=== PATIENT | male | born 1985 | race Caucasian/White ===

== ENCOUNTER 2024-12-29 12:37 | Emergency (ER) | payer OTHER, SELFPAY ==
[2024-12-29 12:41] VITALS: BP 141/81
[2024-12-29 13:12] VITALS: BP 113/66
[2024-12-29 14:00] VITALS: BP 110/65; BMI 27.8
[2024-12-29 14:15] LABS: Hematocrit 40.8 % (39.0-52.0); Hemoglobin 13.4 g/dL (13.0-18.0); Mean Corp Hgb Conc. 32.8 g/dL (33.0-37.0); Mean Corpuscular Volume 85.9 fL (80.0-94.0); Nucleated Red Blood Cells % 0 % (-); Platelet Count 299 10^3/uL (130-400); Red Cell Dist. Width 12.1 % (11.5-14.5)
[2024-12-29 14:34] LABS: ALT (SGPT) 35 U/L (0-50); AST (SGOT) 32 U/L (17-59); Albumin 4.8 g/dl (3.5-5.0); Alkaline Phosphatase 68 U/L (38-126); Blood Urea Nitrogen 24 mg/dl (9-20); Calcium 9.2 mg/dl (8.4-10.2); Carbon Dioxide 28 mmol/L (22-30); Chloride 106 mmol/L (98-107); Estimated Creatinine Clearance 100 ml/min; Glucose 98 mg/dl (70-99); Potassium 4.3 mmol/L (3.5-5.1); Sodium 139 mmol/L (135-145); Total Protein 7.1 g/dl (6.3-8.2); eGFR > 60.00
[2024-12-29 14:45] LABS: Troponin I < 0.012 ng/ml
[2024-12-29 15:00] VITALS: BP 115/69
--- NOTE | 2024-12-29 15:03 | ED.GENMED ---
History of Present Illness
General
Chief Complaint: Chest Pain
Source: patient
Time Seen by Provider: 12/29/24 14:40
History of Present Illness
History of Present Illness:
39-year-old presents to the emergency room complaining of chest pain. Patient has been having intermittent chest pain of left chest for approximately 2 weeks. The discomfort does not occur with exertion. In fact the exercise today without any
issues. Discomfort typically seems to occur when he is at rest. He denies shortness of breath, diaphoresis, nausea. He does not typically have indigestion or heartburn. Discomfort does not seem to be associated with eating or any particular
activity. When the episode occurs it last for about a couple to 15 minutes. Again its never associated with exertion. He denies any significant medical history.
Phy Exam
Physical Exam
Physical Exam:
General: Awake, Alert, Oriented X3. No acute distress.
Vitals: unremarkable
Head: Atraumatic
Eyes: Pupils equal, EOMI
Throat: Airway intact, no exudates
Neck: Trachea midline
Lungs: Clear and equal b/l
Heart: Regular rate, no murmurs
Abd: Soft, Nontender, No pulsatile mass
Neuro: Nonfocal
Skin: Warm, dry, no rash
Extremities: pulses equal b/l, no edema
Scores
Heart Score for Chest Pain Patients
STEMI patient?: No
History: Slightly or Non-Suspicious
ECG: Normal
Age: </= 45 years
Risk Factors: No Risk Factors
Troponin: </= Normal Limit
Heart Score for Chest Pain Patients: 0
Heart Score Risk: 2.5% MACE over next 6 weeks
Course
Orders/Labs/Results
Orders:
Orders
12/29/24
Electrocardiogram (*1) Stat
Other Reason for Exam: CP
Comment: DONE
12/29/24 14:01
Complete Blood Count/With Diff Urgent
Comprehensive Metabolic Panel Urgent
Troponin I Urgent
12/29/24 15:12
CR Chest - 2 Views Urgent
Comment:
Reason For Exam: chest pain
Abnormal Lab Results
12/29/24
14:01
MCHC 32.8 L g/dL
(33.0-37.0)
Absolute Monos (auto) 0.9 H 10^3/uL
(0.1-0.6)
Monocytes % 13.7 H %
(1.7-9.3)
BUN 24 H mg/dl
(9-20)
12/29/24 14:01
12/29/24 14:01
Vital Signs
Initial and Last Documented VS:
Initial Vital Signs
Temp Pulse Resp BP Pulse Ox
98.4 F 66 18 141/81 99
12/29/24 12:41 12/29/24 12:41 12/29/24 12:41 12/29/24 12:41 12/29/24 12:41
Last Documented Vital Signs
Temp Pulse Resp BP Pulse Ox
98.4 F 63 14 107/63 99
12/29/24 14:00 12/29/24 16:00 12/29/24 15:31 12/29/24 16:00 12/29/24 15:04
MDM/Problems Addressed
Differential Diagnosis Includes:
Angina, chest wall pain, pneumothorax, anemia
MDM/Problems Addressed:
Patient presents with intermittent chest pain which does not appear to be consistent with any sort of a exertion or activity. EKG shows no acute ischemic changes. Labs are unremarkable. Overall no suggestion of an unstable process or acute
coronary syndrome. Patient stable for discharge home and follow-up with as an outpatient
*Radiology
Radiology exam reviewed: radiology read reviewed
*Pulse Oximetry
SaO2: 99
Oxygen Mode of Delivery: Room air
Patient hypoxic: no
*EKG
Interpreted by ED Provider?: Yes
Heart Rate: 56
Rate: bradycardiac
Rhythm: sinus
[place]: normal axis
Interval: normal interval
QRS Pattern: normal QRS
Ischemia: no ischemia
*Operations Section Manager Interpretation
Rate: normal
Interpretation: normal
Rhythm: sinus
*Critical Care Note
Total Time (30-74mins, 75-104mins- exclusive of procedures): Not Applicable
Update Note
Update Note:
Discharge instructions were printed and prior to my ability to speak to him I was called into a room to prepare for cardiac arrest patient. After finishing with that situation I went to bed 13 to speak with the patient but he had left.
ED Attending Note
-
Portions of this chart may have been created with voice recognition software.� Occasional wrong word or��sound alike� substitutions may have occurred due to the inherent limitations of voice recognition software.
Discharge Plan
Departure
Patient Disposition: Home (Routine Discharge)
Date of Disposition: 12/29/24
Time of Disposition: 15:35
Patient with high blood pressure during this ER visit?: No
Condition: Good
Discharge Problem:
Chest pain
Instructions: Chest Pain PCP Follow Up
Activity Restrictions/Additional Instructions:
Follow up with your primary care provider. Your Chest x-ray, labs and ekg are all good.
Interventions
Interventions:
*Risk Screen - Suicide Last Done: 12/29/24 12:41
*General Assessment Last Done: 12/29/24 12:41
*Neglect/Abuse Screening Last Done: 12/29/24 12:41
*ED- Fall Risk Assessment Last Done: 12/29/24 14:00
*ED COVID-19 Vaccine History Last Done: 12/29/24 14:00
*Nursing Disposition Last Done: 12/29/24 16:39
ED- Cardiac Assessment Last Done: 12/29/24 14:00
Discharge Date and Time
Discharge Date/Time: 12/29/24 16:39
Print Language: GREENLANDIC
[2024-12-29 15:30] VITALS: BP 112/44
[2024-12-29 16:00] VITALS: BP 107/63
== END 2024-12-29 16:39 | disposition home or self-care (01) ==
LOC: EMR 12:37
PROVIDERS: EMERGENCY PHYSICIAN Emergency Medicine
DX: R07.9 Chest pain, unspecified (principal)
CPT/HCPCS: 99284; 71046; 80053; 84484; 85025; 93005

== ENCOUNTER 2025-01-21 12:36 | Emergency (ER) | payer OTHER, SELFPAY ==
[2025-01-21 12:38] VITALS: BP 129/81
[2025-01-21 12:51] LABS: Hematocrit 39.7 % (39.0-52.0); Hemoglobin 13.4 g/dL (13.0-18.0); Mean Corp Hgb Conc. 33.8 g/dL (33.0-37.0); Mean Corpuscular Volume 83.8 fL (80.0-94.0); Nucleated Red Blood Cells % 0 % (-); Platelet Count 294 10^3/uL (130-400); Red Cell Dist. Width 11.9 % (11.5-14.5)
[2025-01-21 13:10] VITALS: BP 131/74
[2025-01-21 13:12] LABS: ALT (SGPT) 30 U/L (0-50); AST (SGOT) 32 U/L (17-59); Albumin 4.7 g/dl (3.5-5.0); Alkaline Phosphatase 68 U/L (38-126); Blood Urea Nitrogen 22 mg/dl (9-20); Calcium 9.7 mg/dl (8.4-10.2); Carbon Dioxide 21 mmol/L (22-30); Chloride 104 mmol/L (98-107); Glucose 107 mg/dl (70-99); Potassium 3.9 mmol/L (3.5-5.1); Sodium 137 mmol/L (135-145); Total Protein 7.2 g/dl (6.3-8.2); eGFR > 60.00
--- NOTE | 2025-01-21 14:10 | ED.GENMED ---
History of Present Illness
General
Chief Complaint: Heart Rate Problem
Time Seen by Provider: 01/21/25 14:10
Nursing documentation reviewed up to this point in time: agreed with
History of Present Illness
History of Present Illness:
39-year-old male presents to the ER for evaluation of elevated heart rate that occurred while he was at the park this morning. Patient states that he got an alert from his watch that his heart rate was approximately 160. He then began to feel weak
and sat down. He reported mild feeling of shortness of breath during this episode. He reports that it lasted about 20 to 25 minutes. He states that he has been eating and drinking normally, typically only drinks water and coffee. He does report
that he drank 2-1/2 large coffees today, perhaps more than usual. He did have some alcohol last night. He denies any recent travel. No prior personal history of ACS. Patient had been seen in the emergency department in December for chest pain and
was referred to cardiology for stress test-this is scheduled in March. He reports a cardiac history in the family with both his mother and brother requiring valve replacement. He denies any family history of arrhythmia. Patient does not take
any prescription medications on a daily basis. He denies any recent illness. No recent travel. No peripheral edema.
Review of Systems
Review of Systems
Allergies reviewed?: Yes
Phy Exam
Physical Exam
Physical Exam:
Patient is awake, alert, appears in no acute distress, head is NCAT, PERRL, EOMI mucous membranes moist, conjunctiva pink, heart regular rate and rhythm without murmurs or ectopy, lungs are clear to auscultation without wheezes rales or rhonchi, no
JVD, abdomen is soft and nontender on palpation, extremities without edema, GCS is 15
Course
Orders/Labs/Results
Orders:
Orders
01/21/25 12:37
Electrocardiogram (*1) Urgent
Reason for Study: Tachycardia
EKG- Treatment ONCE
01/21/25 12:45
Complete Blood Count/With Diff Urgent
Comprehensive Metabolic Panel Urgent
01/21/25 14:21
Add On- LAB Urgent
Tests Added?: magnesium
01/21/25 14:23
CR Chest - 2 Views Urgent
Comment:
Reason For Exam: palpitations
01/21/25 14:24
0.9% Sodium Chloride 1000 ml [Nss] 1,000 ml IV BOLUS
01/21/25 14:31
Cardiac Monitoring- Treatment ONCE
01/21/25 14:58
Magnesium Urgent
Abnormal Lab Results
01/21/25
12:45
Absolute Monos (auto) 0.9 H 10^3/uL
(0.1-0.6)
Monocytes % 14.8 H %
(1.7-9.3)
Carbon Dioxide 21 L mmol/L
(22-30)
BUN 22 H mg/dl
(9-20)
Glucose 107 H mg/dl
(70-99)
01/21/25 12:45
01/21/25 12:45
Very reassuring labs with normal hemoglobin, normal white blood count, mild elevation in BUN, although this is similar to prior labs from 12/29/2024. Magnesium within normal limits
Vital Signs
Initial and Last Documented VS:
Initial Vital Signs
Temp Pulse Resp BP Pulse Ox
97.8 F 72 16 129/81 100
01/21/25 12:38 01/21/25 12:38 01/21/25 12:38 01/21/25 12:38 01/21/25 12:38
Last Documented Vital Signs
Temp Pulse Resp BP Pulse Ox
97.8 F 72 16 129/81 100
01/21/25 12:38 01/21/25 12:38 01/21/25 12:38 01/21/25 12:38 01/21/25 14:11
MDM/Problems Addressed
Differential Diagnosis Includes:
Differential diagnosis to consider but not limited to SVT, other tacky arrhythmia, lecture light dyscrasia, dehydration, paroxysmal A-fib along with other etiologies considered
*Radiology
Radiology exam reviewed: preliminary read by ED provider (I independently viewed and interpreted two-view chest x-ray showing no acute process, clear lungs)
*Pulse Oximetry
SaO2: 100
Oxygen Mode of Delivery: Room air
Patient hypoxic: no
*EKG
Interpreted by ED Provider?: Yes (I independently viewed and interpreted twelve-lead EKG showing normal sinus rhythm, rate 88, normal axis, normal intervals, no ST elevation, this is a normal tracing, similar to prior from 12/29/2024)
*Environment Artist Interpretation
Rate: normal (I independently viewed and interpreted rhythm strip showing normal sinus rhythm, no ectopy)
*Critical Care Note
Total Time (30-74mins, 75-104mins- exclusive of procedures): Not Applicable
Update Note
Update Note:
I placed patient on green marketing specialist during interview. Will observe while awaiting addition of magnesium level and installation of 1 L IV fluids for treatment of possible dehydration. I discussed with patient no acute worrisome findings on EKG,
although his QTc is slightly longer than prior of 380 ms. Will also obtain chest x-ray. Will reassess. Patient and present at bedside agree with plan at current
1559: I reviewed with patient and present bedside very reassuring workup in the ER, no significant electrolyte dyscrasia. Heart rate and vital signs stable throughout. Of observation. I reviewed green marketing specialist strips, no evidence for
arrhythmia. I discussed with him benefit of follow-up with cardiology for Holter monitor-they cannot recall the name of the bobbin cleaner hand that they are supposed to see but have the information at home. They expressed understanding of need to return
if patient has recurrent symptoms. They have no questions at the current time.
ED Attending Note
-
Portions of this chart may have been created with voice recognition software.� Occasional wrong word or��sound alike� substitutions may have occurred due to the inherent limitations of voice recognition software.
Discharge Plan
Departure
Patient Disposition: Home (Routine Discharge)
Date of Disposition: 01/21/25
Time of Disposition: 16:01
Patient with high blood pressure during this ER visit?: No
Discharge Problem:
Heart palpitations
Instructions: Palpitations (DC)
Referrals:
UNKNOWN - PT DOES,NOT KNOW [Family Provider]
Activity Restrictions/Additional Instructions:
Please contact cardiology office to schedule appointment as you would benefit from a 'Holter monitor' to assess for possible heart rhythm issue which may have triggered your symptoms today. Please follow-up with your primary care physician as they
may be helpful in facilitating further care. Encourage fluids. Please try adding an electrolyte solution daily to help with hydration and minimize coffee intake to 1 to 2 cups daily. Also try to limit alcohol intake. Return to the ER for any
concerns
Interventions
Interventions:
*Risk Screen - Suicide Last Done: 01/21/25 12:38
*Neglect/Abuse Screening Last Done: 01/21/25 12:38
Discharge Date and Time
Print Language: [place]
[2025-01-21] MEDS: NSS 1000 IV (15:03)
[2025-01-21 15:41] LABS: Magnesium 1.8 mg/dl (1.6-2.3)
[2025-01-21 16:48] VITALS: BP 124/78
== END 2025-01-21 16:49 | disposition home or self-care (01) ==
LOC: EMR 12:36
PROVIDERS: Emergency Medicine; EMERGENCY PHYSICIAN Emergency Medicine; REFERRING PHYSICIAN Family Medicine
DX: R00.2 Palpitations (principal)
CPT/HCPCS: 99283; 96360; 71046; 80053; 83735; 85025; 93005